=== PATIENT | female | born 1985 | race Caucasian/White ===

== ENCOUNTER 2021-03-12 10:38 | Emergency (ER) | payer MEDICAID ==
[~2021-03-12] VITALS: Ht 172.7 cm; Wt 119.5 kg
[2021-03-12 11:02] VITALS: BP 138/82
--- NOTE | 2021-03-12 11:05 | NUR ---
PT PRESENTS TO ED WITH C/O BLURRED VISION AND INTERMITTENT CHEST PAIN SINCE FRIDAY. PT STATES THEY HAVE ANXIETY/PANIC ATTACKS. PT A&O, RESPS EVEN AND UNLABORED, VSS. MONITORS ATTACHED, CALL LIGHT IN REACH.
[2021-03-12] MEDS ORDERED: METOCLOPRAMIDE 5 MG/ML, 2ML IM ONE (11:30)
[2021-03-12] MEDS ORDERED: KETOROLAC 30 MG/1 ML IM ONE (11:30)
[2021-03-12] MEDS ORDERED: KETOROLAC 60 MG/2 ML ONE (11:31)
[2021-03-12] MEDS ORDERED: METOCLOPRAMIDE 5 MG/ML, 2ML ONE (11:31)
[2021-03-12 12:01] LABS: MICROSCOPIC NOT IND
[2021-03-12 12:23] LABS: BASOPHILS % (AUTO) 1 % (0-1); EOSINOPHILS % (AUTO) 3 % (1-7); LYMPHOCYTES % (AUTO) 28 % (22-44); MEAN CORPUSCULAR HEMOGLOBIN 22.8 pg (27.0-34.8); MEAN PLATELET VOLUME 9.5 fL (7.4-10.4); MONOCYTES % (AUTO) 4 % (2-9); NEUTROPHILS % (AUTO) 64 % (42-75); PLATELET COUNT 228 x10^3/uL (130-400); RED BLOOD COUNT 5.22 x10^6/uL (3.82-5.3); RED CELL DISTRIBUTION WIDTH 16.2 % (9.6-15.2)
[2021-03-12 12:27] LABS: CALCIUM 8.1 mg/dL (8.5-10.1); CHLORIDE 112 mmol/L (98-107); CREATININE 0.56 mg/dL (0.55-1.02)
--- NOTE | 2021-03-12 12:40 | NUR ---
DISCHARGE INSTRUCTIONS REVIEWED. AMBULATORY TO DISCHARGE DESK WITH STEADY GAIT
[2021-03-12 12:45] LABS: ANION GAP 4 mmol/L (5-15)
== END 2021-03-12 12:42 | disposition home or self-care (01) ==
LOC: ED 12:30
DX: H53.8 Other visual disturbances (principal); R35.0 Frequency of micturition
CPT/HCPCS: 36415; 80048; 81003; 85025; 96372; 99284; J1885; J2765